=== PATIENT | male | born 1985 | race Caucasian/White ===

== ENCOUNTER → 2016-07-17 | Outpatient (CLI) | payer OTHER ==
--- NOTE | 2016-07-17 16:32 | DI ---
EXAM: ANKLE RIGHT 2 VIEW DATE: 07/17/2016 3:43 PM Encounter: Initial INDICATION: [email or web address]: DIAGNOSTIC TESTING COMPARISON: None available. TECHNIQUE: AP and lateral views of the ankle were obtained FINDINGS: Bony mineralization is normal. The osseous structures appear intact with no acute fracture identified. No osteochondral lesions of the tibial plafond or talar dome identified. The joint spaces are maintained. The tibiotalar joint is congruent. No focal radiographically apparent soft tissue swelling seen. No radiopaque foreign body. IMPRESSION: No acute osseous or soft tissue abnormality appreciated radiographically. .
--- NOTE | 2016-07-17 16:35 | DI ---
EXAM: KNEE LEFT 2 VIEW DATE: 07/17/2016 3:44 PM Encounter: Initial INDICATION: [email or web address]: DIAGNOSTIC TESTING COMPARISON: Concurrent right knee radiographs TECHNIQUE: AP and lateral views of the knee were obtained. FINDINGS: Bony mineralization is normal. The osseous structures appear intact with no acute fracture identified. The joint spaces are maintained. No significant joint effusion. No focal radiographically apparent soft tissue swelling seen. No radiopaque foreign body. IMPRESSION: No acute osseous abnormality or significant arthritic changes appreciated. .
--- NOTE | 2016-07-17 16:35 | DI ---
EXAM: KNEE RIGHT 2 VIEW DATE: 07/17/2016 3:44 PM Encounter: Initial INDICATION: [email or web address]: DIAGNOSTIC TESTING COMPARISON: Concurrent left knee radiographs TECHNIQUE: AP and lateral views of the knee were obtained. FINDINGS: Bony mineralization is normal. The osseous structures appear intact with no acute fracture identified. The joint spaces are maintained. No significant joint effusion. No focal radiographically apparent soft tissue swelling seen. No radiopaque foreign body. IMPRESSION: No acute osseous abnormality or significant arthritic changes appreciated. .
--- NOTE | 2016-07-17 16:36 | DI ---
Indication: [email or web address]: DIAGNOSTIC TESTING Procedure: HAND RIGHT 3 VIEW: Encounter: Initial Comparison: None Technique: Three views of the right hand were obtained Findings: Bony mineralization is normal. The visualized osseous structures appear intact with no acute fracture identified. The joint spaces are maintained. No focal radiographically apparent soft tissue swelling. No radiopaque foreign body. Impression: Unremarkable right hand radiographs. .
== END ==
LOC: IMA 15:36
DX: Z02.89 Encounter for other administrative examinations (principal)